=== PATIENT | female | born 1960 | race Caucasian/White ===

== ENCOUNTER 2017-12-07 13:55 | Emergency (ER) | payer BC ==
[2017-12-07 14:02] VITALS: BP 131/66; PULSE 82; TEMP 98.1; BMI 24.5
[2017-12-07] MEDS ORDERED: ALBUTEROL SO4 2.5/IPRATROPIUM 0.5 INH SOL 3 ML VIAL.NEB. NEB ONE ×2 (14:03→15:04)
[2017-12-07] MEDS ORDERED: predniSONE 20 MG TABLET (UD) ONE (14:50)
[2017-12-07] MEDS ORDERED: predniSONE 20 MG TABLET (UD) PO ONE (14:51)
--- NOTE | 2017-12-07 15:02 | PDOC ---
History of Present Illness - General Chief Complaint: Shortness of Breath Stated Complaint: ASTHMA Time Seen by Provider: 12/07/17 14:32 History Source: Patient Exam Limitations: No Limitations - History of Present Illness Initial Comments: 12/07/17 14:54 Patient came for continued cough, shortness of breath and asthma exacerbation. States has been suffering with a URI for the past 10 days and using over-the- counter medications and Proventil pumps however the past few days symptoms have worsened and her use for Proventil has increased. Decided come for evaluation. 12/07/17 16:02 Timing/Duration: reports: getting worse Severity: reports: moderate Possible Cause: Yes: chronic episodes Associated Symptoms: reports: chest pain/soreness, cough, nasal congestion, nasal drainage, wheezing Past History - Travel Traveled outside of the country in the last 30 days: No Close contact w/someone who was outside of country & ill: No - Past Medical History Allergies/Adverse Reactions: Allergies Allergy/AdvReac Type Severity Reaction Status Date / Time No Known Allergies Allergy Verified 12/07/17 13:57 Home Medications: Ambulatory Orders Albuterol Sulfate Inhaler - [Ventolin HFA Inhaler -] 1 - 2 inh PO Q4H #1 inhaler 12/07/17 predniSONE [Deltasone -] 20 mg PO BID #8 tablet 12/07/17 Asthma: Yes Cardiac Disorders: Yes ([place], TRIPLE BYPASS) COPD: Yes Diabetes: Yes HTN: Yes Hypercholesterolemia: Yes - Surgical History Appendectomy: Yes - Suicide/Smoking/Psychosocial Hx Smoking History: Never smoked Review of Systems - Review of Systems Able to Perform ROS?: Yes Is the patient limited Cameroonian proficient: Yes Constitutional: Yes: Symptoms Reported, See HPI, Malaise. No: Chills, Fever HEENTM: Yes: Symptoms Reported, Nose Congestion, Throat Pain Respiratory: Yes: See HPI, Cough, Wheezing. No: Symptoms reported Musculoskeletal: No: Symptoms Reported Integumentary: No: Symptoms Reported Neurological: Yes: Symptoms reported, See HPI, Headache All Other Systems: Reviewed and Negative *Physical Exam - Vital Signs Last Vital Signs Temp Pulse Resp BP Pulse Ox 98.1 F 82 19 131/66 98 12/07/17 13:58 12/07/17 13:58 12/07/17 13:58 12/07/17 13:58 12/07/17 13:58 - Physical Exam General Appearance: Yes: Nourished, Appropriately Dressed, Apparent Distress, Mild Distress, Moderate Distress HEENT: positive: SAMEER, TMs Normal (Fam but landmarks easily visualized), Pharynx Normal, Hearing Grossly Normal Neck: positive: Supple, Lymphadenopathy (R), Lymphadenopathy (L). negative: Tender Respiratory/Chest: positive: Chest Tender (pleuritic type chest pain with deep inspiration), Decreased Breath Sounds, Wheezing. negative: Lungs Clear, Normal Breath Sounds Gastrointestinal/Abdominal: positive: Soft Extremity: positive: Normal Inspection Integumentary: positive: Dry, Warm, Pale Neurologic: positive: commander internal affairs II-XII NML intact, Fully Oriented, Alert, Normal Mood/ Affect, Normal Response, Motor Strength 02/11 ED Treatment Course - Medications Given in the ED: ED Medications Discontinued Medications Generic Name Dose Route Start Last Admin Trade Name Freq PRN Reason Stop Dose Admin Albuterol/Ipratropium 1 amp 12/07/17 14:03 12/07/17 14:05 Duoneb - NEB 12/07/17 14:04 1 amp NOW ONE Administration Prednisone 60 mg 12/07/17 14:51 12/07/17 14:52 Deltasone - PO 12/07/17 14:52 60 mg ONCE ONE Administration Progress Note - Progress Note Progress Note: Upper respiratory infection, with asthma exacerbation Medical Decision Making - Medical Decision Making 12/07/17 15:41 Much improved after third DuoNeb and prednisone. States feels well and ready for discharge. 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 deputy general counsel this week *DC/Admit/Observation/Transfer Diagnosis at time of Disposition: Upper respiratory infection, viral - Discharge Dispostion Disposition: HOME Condition at time of disposition: Stable Admit: No - Prescriptions Prescriptions: Albuterol Sulfate Inhaler - [Ventolin HFA Inhaler -] 1 - 2 inh PO Q4H #1 inhaler predniSONE [Deltasone -] 20 mg PO BID #8 tablet - Referrals Referrals: ON STAFF,NOT [Primary Care Provider] - - Patient Instructions Printed Discharge Instructions: DI for Viral Upper Respiratory Infection -- Adult Additional Instructions: Rest, drink lots of fluids: Teas, water, soups, Pedialyte Saltwater gargles Steamy showers/seem to face break up mucus Avoid contact with others until fevers and cough resolved Lots of handwashing and good hygiene Continue [id number] medications for symptomatic relief Tylenol or Motrin for fever and pain Continue albuterol nebulizers every 4-6 hours for the next 2 days then as needed for continued cough Prednisone as directed until completed Followup with private physician in one to 2 days Return to emergency department / pediatric hospital for worsened symptoms, fevers, dehydration - Post Discharge Activity Forms/Work/School Notes: Back to Work
== END 2017-12-07 16:07 | disposition home or self-care (01) ==
LOC: JERFT 13:55
PROC: 3E0F7GC Introduction of Other Therapeutic Substance into Respiratory Tract, Via Natural or Artificial Opening (ICD-10-PCS; principal; 2017-12-07)
DX: J06.9 Acute upper respiratory infection, unspecified (principal); J44.9 Chronic obstructive pulmonary disease, unspecified; E11.9 Type 2 diabetes mellitus without complications; I10 Essential (primary) hypertension; E78.00 Pure hypercholesterolemia, unspecified
CPT/HCPCS: 99281-25

== ENCOUNTER 2018-07-24 08:24 | Emergency (ER) | payer BC ==
[2018-07-24 08:35] VITALS: BMI 26.4
[2018-07-24] MEDS ORDERED: MECLIZINE HCL 25 MG TABLET (FP) PO ONE (09:40)
[2018-07-24] MEDS ORDERED: MECLIZINE HCL 25 MG TABLET (FP) ONE (09:46)
[2018-07-24] MEDS ORDERED: NYSTATIN 100,000 UNIT/GM TOPICAL CREAM 15 GM TUBE TP ONE (10:11)
--- NOTE | 2018-07-24 10:16 | PDOC ---
Attending Attestation - Resident Resident Name: Marilee Latham - ED Attending Attestation I have performed the following: I have examined & evaluated the patient, The case was reviewed & discussed with the resident, I agree w/resident's findings & plan, Exceptions are as noted - HPI HPI: 07/24/18 10:10 58 yo F with mult med problems including PR/ CABG in 40's, DM TIA, ALL, htn, HLD , and anxiety/ insomnia here /co generalized malaise, chills and concern for wound on her stomach. pt has noted some skin breakdown in her old appendectomy scar has a skin fold there. was putting silvercel and bactroban which she has used for leg wounds in the past. does have h/o eczema in addition. also c/o vertigo.,k vertigo worse with head position change. has had in past many times associated with allergies. no focal weakness. no change to speech. did note a foul oder coming from wound - Physicial Exam PE: 07/24/18 10:13 awake alert lungs clear bilaterally heart Rrr no mrg. abd soft nt nd. rlq with scar , 1 in surrounding area in fold of erythema, scaling present. no fluctance. no open wound noted. no palp hernia. otherwise skin warm and dry. nuero : finger to nose normal, alt hand movement normal. neg romberg. maciej hallpike negative, but pt sxs on sitting up . no noted nystagmus. strength reveals mild llext 4+/ 5 weakness when compared to right. right leg thin, old scars from prior fasciotomies 2 + pulses. - Medical Decision Making 07/24/18 10:16 differential: 58 yo F with htn dm hld prior cabg / cad all here with generalized malaise and weakness, vertigo. left leg weakness on exam. differential renal failure, anemia, hyperglycemia, dehydration, positional vertigo from seasonal allertgies. due to asymmetry of exam will obtain ct head. labs, pt declining iv for iv hydration. meclizine for vertigo. normal cerbellar exam, for her wound will treat for dahlia and eczema with steroid cream and nystatin cream. reassess. sees team driver dr. martinez 07/24/18 12:[address] head normal. left leg likley related to her known lower spine disease. pt had recently had imaging. told to follow up with spine. ua negative. ekg unremarkble. cxr negative. dr latham d/w dr. martinez will see pt this week. continue meclizine for vertigo, and topical nystatin and steroid cream for dermatitis near her old appy scar. Heart Score/ECG Review #1 General ECG Interpretation: Sinus Rhythm, Normal Rate (72), Normal Intervals, No acute ischemic changes (TWI III only, left axis. TWI v1 - v3)
[2018-07-24] MEDS ORDERED: TRIAMCINOLONE ACET 0.1% CREAM 15 GM TUBE TP ONE (10:45)
[2018-07-24 11:12] LABS: BASO % 0.7 % (0-2.0); EOS % 2.2 % (0-4.5); HEMATOCRIT 35.1 % (32.4-45.2); HEMOGLOBIN 11.5 GM/dL (10.7-15.3); LYMPH % 22.3 % (8-40); MCHC 32.7 g/dl (32.0-36.0); MEAN CELL VOLUME 88.8 fl (80-96); MEAN PLT VOLUME 8.4 fl (7.5-11.1); MONO % 13.4 % (3.8-10.2); NEUT % 61.4 % (42.8-82.8); PLATELET COUNT 264 K/MM3 (134-434); RBC 3.95 M/mm3 (3.60-5.2); WHITE BLOOD COUNT 6.2 K/mm3 (4.0-10.0)
[2018-07-24 11:14] LABS: URINE APPEARANCE CLEAR; URINE BILIRUBIN NEGATIVE (<2.0 mg/dL); URINE COLOR YELLOW; URINE GLUCOSE (UA) NEGATIVE (NEGATIVE); URINE KETONE TRACE (NEGATIVE); URINE LEUK ESTERASE TRACE (NEGATIVE); URINE NITRITE NEGATIVE (NEGATIVE); URINE PROTEIN NEGATIVE (NEGATIVE); URINE UROBILINOGEN NEGATIVE mg/dL (0.2-1.0)
[2018-07-24 11:24] LABS: EPI CELLS RARE /HPF (FEW); URINE HYALINE CAST 12 /lpf
[2018-07-24 11:31] LABS: ALBUMIN 3.7 g/dl (3.4-5.0); ALK PHOS 33 U/L (45-117); ANION GAP 8 MMOL/L (8-16); BILIRUBIN,TOTAL 0.3 mg/dL (0.2-1); BLOOD UREA NITROGEN 24 mg/dL (7-18); CALCIUM 8.2 mg/dL (8.5-10.1); CHLORIDE 103 mmol/L (98-107); CO2 28 mmol/L (21-32); CREATININE 1.3 mg/dL (0.55-1.3); GLUCOSE,RANDOM 125 mg/dL (74-106); POTASSIUM 5.1 mmol/L (3.5-5.1); SGOT/AST 42 U/L (15-37); SGPT/ALT 31 U/L (13-61); SODIUM 139 mmol/L (136-145); TOT PROT 6.9 g/dl (6.4-8.2)
--- NOTE | 2018-07-24 12:28 | PDOC ---
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 On Tuesday, patient reports she noticed redness in an area of a previous surgical scar as well as foul-smelling moisture. She dressed the wound with silvercel and bactroban. The area is not tender. Patient denies abdominal pain, nausea, vomiting or abnormal bowel movements. She has also been tired for the past week and had an episode of dizziness yesterday which was alleviated with meclizine. She currently endorses dizziness, but denies any focal neurologic deficits. No fever, chills, chest pain, or shortness of breath. Past History - Past Medical History Allergies/Adverse Reactions: Allergies Allergy/AdvReac Type Severity Reaction Status Date / Time No Known Allergies Allergy Verified 07/24/18 08:30 Home Medications: Ambulatory Orders Albuterol Sulfate Inhaler - [Ventolin HFA Inhaler -] 1 - 2 inh PO Q4H #1 inhaler 12/07/17 Nystatin Cream [Mycostatin Cream -] 1 applic TP BID #1 tube 07/24/18 Triamcinolone 0.1% Cream [Aristocort 0.1% Cream -] 1 applic TP BID #1 tube 07/24 Asthma: Yes Cancer: Yes (ALL) Cardiac Disorders: Yes ([place], TRIPLE BYPASS) COPD: Yes Diabetes: Yes HTN: Yes Hypercholesterolemia: Yes - Surgical History Appendectomy: Yes Cardiac Surgery: Yes (cabg) - Suicide/Smoking/Psychosocial Hx Smoking History: Never smoked Have you smoked in the past 12 months: No Information on smoking cessation initiated: No Hx Alcohol Use: No Drug/Substance Use Hx: No Substance Use Type: None Review of Systems - Review of Systems Comments:: Constitutional: no fever, no chills HEENT: no throat pain, no dysphagia Cardiovascular: no chest pain, no palpitations Respiratory: no cough, no shortness of breath Gastrointestinal: no abdominal pain, no nausea, no vomiting Genitourinary: no dysuria, no frequency Musculoskeletal: no myalgia, no arthralgia Skin: +rash, no itching Neurologic: no headache, +dizziness *Physical Exam - Vital Signs Last Vital Signs Temp Pulse Resp BP Pulse Ox 98.6 F 77 18 138/54 L 100 07/24/18 08:31 07/24/18 08:31 07/24/18 08:31 07/24/18 08:31 07/24/18 08:31 - Physical Exam Comments: General: Awake, alert, and fully oriented, in no acute distress Head: no signs of trauma Eyes: EOMI, sclera anicteric ENT: Moist mucus membranes Neck: Normal ROM, supple Lungs: Lungs clear, Normal breath sounds Cardio: Regular rhythm, S1 and S2 present Abdomen: Soft, nontender. No guarding, no rebound, no masses Extremities: Normal range of motion, Distal pulses present SKIN: Warm, Dry, normal turgor; nontender area of erythema present around old appendectomy surgical scar; no fluctuance, discharge, herniation, or induration. Neurologic: Cranial nerves II through XII grossly intact. Normal speech, sensation, gait, coordination. Strength: LUE 5/5, RUE 5/5, LLE 4/5, RLE 5/5 ED Treatment Course - LABORATORY CBC & Chemistry Diagram: 07/24/18 10:58 07/24/18 10:58 - ADDITIONAL ORDERS Additional order review: Laboratory Results 07/24/18 07/24/18 10:58 10:58 Sodium 139 Potassium 5.1 Chloride 103 Carbon Dioxide 28 Anion Gap 8 BUN 24 H Creatinine 1.3 Creat Clearance w eGFR 41.78 Random Glucose 125 H Calcium 8.2 L Total Bilirubin 0.3 AST 42 H ALT 31 Alkaline Phosphatase 33 L Troponin I < 0.02 Total Protein 6.9 Albumin 3.7 Urine Color Yellow Urine Appearance Clear Urine pH 5.0 Ur Specific [place] 1.020 Urine Protein Negative Urine Glucose (UA) Negative Urine Ketones Trace H Urine Blood Negative Urine Nitrite Negative Urine Bilirubin Negative Urine Urobilinogen Negative Ur Leukocyte Esterase Trace Urine WBC (Auto) 2 Urine RBC (Auto) <1 Ur Epithelial Cells Rare Hyaline Casts 12 07/24/18 10:58 RBC 3.95 MCV 88.8 MCHC 32.7 RDW 13.0 MPV 8.4 Neutrophils % 61.4 Lymphocytes % 22.3 Monocytes % 13.4 H Eosinophils % 2.2 Basophils % 0.7 - RADIOLOGY Radiology Studies Ordered: Category Date Time Status HEAD CT WITHOUT CONTRAST [CT] Stat CT Scan 07/24/18 10:08 Completed CHEST PA & LAT [RAD] Stat Radiology 07/24/18 10:10 Completed - Medications Given in the ED: ED Medications Discontinued Medications Generic Name Dose Route Start Last Admin Trade Name Susan PRN Reason Stop Dose Admin Meclizine HCl 25 mg 07/24/18 09:40 07/24/18 09:55 Antivert - PO 07/24/18 09:41 25 mg ONCE ONE Administration Nystatin 1 applic 07/24/18 10:11 07/24/18 11:09 Mycostatin Cream - TP 07/24/18 10:12 1 applic ONCE ONE Administration Medical Decision Making - Medical Decision Making 58yo F with PMH of DM, HTN, TIA, [place] at age 40 s/p triple bypass, vertigo presenting with skin complaint. -Differential includes yeast infection, cellulitis, inflammation, eczema, as well as SDH, TIA, BPPV -Nystatin and triamcinolone to treat for presumptive yeast infection on abdomen -Will perform workup to investigate patient's dizziness and asymmetric strength exam on lower extremities -Labs: no leukocytosis or anemia, UA negative, Tpn negative -EKG: rate 72, t wave inversions in leads III, V1-V3 -CXR: no acute pathology -Head CT: no acute pathology -Patient declining IV at this time, stating that she is a difficult stick -Meclizine 25: relieved patients dizziness -Discussed case with patients PCP, Dr. Sagastume, who agrees with our plan and is able to see patient this week -Referral to spine -Prescriptions for nystatin and triamcinolone sent to pharmacy -Discharged. Patient amenable to plan *DC/Admit/Observation/Transfer Diagnosis at time of Disposition: Yeast infection of the skin - Discharge Dispostion Disposition: HOME Condition at time of disposition: Improved - Prescriptions Prescriptions: Nystatin Cream [Mycostatin Cream -] 1 applic TP BID #1 tube Triamcinolone 0.1% Cream [Aristocort 0.1% Cream -] 1 applic TP BID #1 tube - Referrals Referrals: Abe Sagastume MD [Primary Care Provider] - Eugenio Rashid MD [Staff Physician] - - Patient Instructions Printed Discharge Instructions: DI for Yeast Infection-Skin Additional Instructions: You came into the ED for a skin complaint. Prescriptions for nystatin and triamcinolone cream sent to your pharmacy. Labs were unremarkable. CT imaging of your head did not show acute pathology. We spoke with Dr. Sagastume who can have you follow-up with him this week. Call and make an appointment. We have referred you to a neuro/product support specialist, Dr. Rashid. Call and make an appointment. Immediate medical attention is required if you experience: redness or hardness, pain or tenderness, a red streak, yellow or green discharge oozing from the area , fever or chills, chest pain, shortness of breath, weakness on one side of your body, lightheadedness, or any new or concerning symptoms. If you think you have an emergency, call for medical help right away. - Post Discharge Activity
[2018-07-24 13:05] VITALS: BP 114/49; PULSE 75; TEMP 97.8
[2018-07-25] MEDS ORDERED: TRIAMCINOLONE ACET 0.1% CREAM 15 GM TUBE TP ONE (10:45)
--- NOTE | 2018-07-25 13:03 | EKG ---
Test Reason : Blood Pressure : / mmHG Vent. Rate : 072 BPM Atrial Rate : 072 BPM P-R Int : 166 ms QRS Dur : 126 ms QT Int : 440 ms P-R-T Axes : 021 -34 003 degrees QTc Int : 481 ms NORMAL SINUS RHYTHM LEFT AXIS DEVIATION RIGHT BUNDLE BRANCH BLOCK MINIMAL VOLTAGE CRITERIA FOR LVH, MAY BE NORMAL VARIANT ABNORMAL ECG NO PREVIOUS ECGS AVAILABLE Confirmed by MD YOU, LUCINA ([id number]) on 07/25/2018 1:03:21 PM Referred By: Confirmed By:LUCINA ORTA MD
== END 2018-07-24 13:04 | disposition home or self-care (01) ==
LOC: JER 08:24
DX: B37.2 Candidiasis of skin and nail (principal); I25.10 Atherosclerotic heart disease of native coronary artery without angina pectoris; Z95.1 Presence of aortocoronary bypass graft; I10 Essential (primary) hypertension; I25.2 Old myocardial infarction; Z86.73 Personal history of transient ischemic attack (TIA), and cerebral infarction without residual deficits; E11.9 Type 2 diabetes mellitus without complications; Z85.6 Personal history of leukemia
CPT/HCPCS: 36415; 70450-TC; 71046-TC-FY; 80053; 81003; 81015; 84484; 85025; 87086; 93005; 93010; 99283-25

== ENCOUNTER 2019-03-28 16:22 | Inpatient (IN) | payer BC ==
--- NOTE | 2019-03-28 18:04 | PDOC ---
History of Present Illness - General Chief Complaint: Pain, Acute Stated Complaint: SENT BY DOCTOR Time Seen by Provider: 03/28/19 18:02 History Source: Patient - History of Present Illness Occurred: reports: other Severity: Yes: severe Lower Extremity Pain Location: right: foot Past History - Past Medical History Allergies/Adverse Reactions: Allergies Allergy/AdvReac Type Severity Reaction Status Date / Time prochlorperazine Allergy Severe Verified 03/28/19 18:23 [From Compazine] Home Medications: Ambulatory Orders Albuterol Sulfate Inhaler - [Ventolin Hfa Inhaler -] 2 inh PO PRN 03/21/19 Alprazolam 0.5 mg PO PRN 03/21/19 Aspirin 81 mg PO DAILY 03/21/19 Atorvastatin Calcium 80 mg PO DAILY 03/21/19 Empagliflozin [Jardiance] 10 mg PO DAILY 03/21/19 Fenofibrate Nanocrystallized [Fenofibrate] 145 mg PO DAILY 03/21/19 Hydrocodone/Acetaminophen [Hydrocodon-Acetaminoph 7.5-325] 1 each PO PRN Hydroxyzine HCl 100 mg PO HS 03/21/19 Nebivolol [Bystolic -] 5 mg PO DAILY 03/21/19 Omeprazole 40 mg PO PRN 03/21/19 Quetiapine Fumarate [Seroquel -] 50 mg PO HS 03/21/19 Trazodone HCl 150 mg PO HS 03/21/19 predniSONE [Deltasone -] 4 mg PO DAILY 03/21/19 Anemia: No Asthma: Yes Cancer: Yes (ALL/cervical) Cardiac Disorders: Yes ([place], TRIPLE BYPASS) CVA: No COPD: Yes CHF: No Dementia: No Diabetes: Yes (BORDER[place]) GI Disorders: No Disorders: No HTN: Yes Hypercholesterolemia: Yes Liver Disease: No Seizures: No Thyroid Disease: No - Surgical History Appendectomy: Yes (11yrs- SKIN GRAFT) Cardiac Surgery: Yes (cabg) - Immunization History Immunization Up to Date: No - Suicide/Smoking/Psychosocial Hx Smoking History: Never smoked Have you smoked in the past 12 months: No If you are a former smoker, when did you quit?: 11 YEARS AGO Information on smoking cessation initiated: No Hx Alcohol Use: No Drug/Substance Use Hx: No Substance Use Type: None Hx Substance Use Treatment: No Review of Systems - Review of Systems Constitutional: No: Chills, Fever, Malaise *Physical Exam - Vital Signs Last Vital Signs Temp Pulse Resp BP Pulse Ox 98.3 F 68 16 121/59 L 97 03/28/19 16:32 03/28/19 16:32 03/28/19 16:32 03/28/19 16:32 03/28/19 16:32 - Physical Exam General Appearance: Yes: Appropriately Dressed. No: Apparent Distress HEENT: positive: Normal Voice Neck: positive: Supple Respiratory/Chest: negative: Respiratory Distress Extremity: positive: Other (cam boot w/ dressing intact to RLE) Integumentary: positive: Dry, Warm Neurologic: positive: Fully Oriented, Alert, Normal Mood/Affect Medical Decision Making - Medical Decision Making 03/28/19 18:13 58 -year-old female, history of depression, HTN, HLD, PVD, non-healing R heel ulcer, presents with worsening pain to ulcer site x several days. No fever or chills. S/p CT with runoffs over 2 weeks ago which showed >90% high grade stenosis to R external iliac and common femoral arteries. States she was told to come to ED for admission by Dr Gil of vascular See exam PVD w/ worsening pain to non-healing ulcer, no e/o infxn CT w/ runoffs w/ high grade stenosis to RLE ~2 weeks ago -pain control -labs -vascular c/s -admit 03/28/19 18:30 Case d/w Dr Gil who states plan is to take pt to OR in am for angioplasty. Will admit at this time *DC/Admit/Observation/Transfer Diagnosis at time of Disposition: PVD (peripheral vascular disease), Non-healing wound - Discharge Dispostion Condition at time of disposition: Fair Decision to Admit order: Yes - Referrals Referrals: Abe Sagastume MD [Primary Care Provider] - - Patient Instructions - Post Discharge Activity
[2019-03-28] MEDS ORDERED: morphine CARPU-JECT 4 MG/1 ML DISP.SYRIN IVPUSH ONE (18:05)
[2019-03-28] MEDS ORDERED: morphine SULFATE 4 MG/ML VIAL ONE (18:24)
[2019-03-28 19:01] LABS: EOS % 1.2 % (0-4.5); HEMOGLOBIN 11.5 GM/dL (10.7-15.3); LYMPH % 12.4 % (8-40); MCH 28.7 pg (25.7-33.7); MEAN CELL VOLUME 89.7 fl (80-96); MEAN PLT VOLUME 8.6 fl (7.5-11.1); MONO % 6.5 % (3.8-10.2); NEUT % 78.9 % (42.8-82.8); PLATELET COUNT 316 K/MM3 (134-434); RBC 4.01 M/mm3 (3.60-5.2); RDW 13.6 % (11.6-15.6); WHITE BLOOD COUNT 12.5 K/mm3 (4.0-10.0)
[2019-03-28 19:18] LABS: INR 0.97 (0.83-1.09); PROTHROMBIN TIME (PATIENT) 11.5 SEC (9.7-13.0)
[2019-03-28 19:20] LABS: BILIRUBIN,TOTAL 0.3 mg/dL (0.2-1); BLOOD UREA NITROGEN 22.9 mg/dL (7-18); CALCIUM 9.5 mg/dL (8.5-10.1); CREATININE 1.1 mg/dL (0.55-1.3); POTASSIUM 4.9 mmol/L (3.5-5.1)
--- NOTE | 2019-03-28 19:22 | PN ---
Teaching Attending Note Name of Resident: Morenita Oropeza ATTENDING PHYSICIAN STATEMENT I saw and evaluated the patient. I reviewed the resident's note and discussed the case with the resident. I agree with the resident's findings and plan as documented. SUBJECTIVE: Patient is a 58 year old woman with PMH od NIDDM, Asthma, CAD, triple vessel CABG, Vertigo, Depression, HTN, HLD, PVD, Appendectomy, non-healing R heel ulcer , presents with worsening pain to ulcer site for several days. Denies fever or chills. Had CT scan with runoffs over 2 weeks ago which showed >90% high grade stenosis to right external iliac and common femoral arteries. States she was told to come to ED for admission by Dr Gil of Vascular Surgery. ER staff discussed case with Dr Gil who states plan is to take the patient to the OR in the morning for angioplasty. OBJECTIVE: Alert Vital Signs Period Temp Pulse Resp BP Sys/Teixeira Pulse Ox Last 24 Hr 98.3 F 68 16 121/59 97 HEENT: No Jaundice, eye redness or discharge, PERRLA, EOMI. Normocephalic, atraumatic. External ears are normal and hearing is grossly intact. No nasal discharge. Neck: Supple, nontender. No palpable adenopathy or thyromegaly. No JVD Chest: Good effort. Clear to auscultation and percussion. Heart: Regular. No S3, rub or murmur Abdomen: Not distended, soft, nontender and no HSM. No rebound or guarding. Normal bowel sounds. Ext: Peripheral pulses intact. No leg edema. RLE wound dressed. Skin: Warm and dry. No petechiae, rash or ecchymosis. Neuro: Alert. Oriented x3. CN 2-12 grossly intact. Sensation grossly intact in all four extremities and DTR are symmetric. Psych: Appropriate mood and affect. Good insight. Home Medications Medication Instructions Recorded Albuterol Sulfate Inhaler - 2 inh PO PRN 03/21/19 [Ventolin Hfa Inhaler -] Alprazolam 0.5 mg PO PRN 03/21/19 Aspirin 81 mg PO DAILY 03/21/19 Atorvastatin Calcium 80 mg PO DAILY 03/21/19 Empagliflozin [Jardiance] 10 mg PO DAILY 03/21/19 Fenofibrate Nanocrystallized 145 mg PO DAILY 03/21/19 [Fenofibrate] Hydrocodone/Acetaminophen 1 each PO PRN 03/21/19 [Hydrocodon-Acetaminoph 7.5-325] Hydroxyzine HCl 100 mg PO HS 03/21/19 Nebivolol [Bystolic -] 5 mg PO DAILY 03/21/19 Omeprazole 40 mg PO PRN 03/21/19 Quetiapine Fumarate [Seroquel -] 50 mg PO HS 03/21/19 Trazodone HCl 150 mg PO HS 03/21/19 predniSONE [Deltasone -] 4 mg PO DAILY 03/21/19 Abnormal Lab Results 03/28/19 03/28/19 18:22 18:22 WBC 12.5 H Absolute Neuts (auto) 9.8 H Anion Gap 7 L BUN 22.9 H Random Glucose 115 H Alkaline Phosphatase 42 L ASSESSMENT AND PLAN: 1. Nonhealing Right Heel Ulcer - Patient being kept NPO after midnight for angioplasty procedure tomorrow. Will give gentle IV fluid support and consult Wound care service. EKG and CXR pending. 2. DM For now, we will hold the home diabetes drugs and implement sliding scale insulin regimen. Provide comprehensive diabetes care with patient teaching and counseling about the importance of adherence to prescribed diabetes regimen, euglycemia, eye care and foot care. 3. Hypertension - Restart suitable outpatient antihypertensive drugs when clinically appropriate. Revise regimen to ensure good BP control. Nonpharmacologic measures to control hypertension like weight loss, salt restriction and exercise discussed. 4. DVT prophylaxis - SCD for now. Start Lovenox 40 mg SQ q 24 hours after procedure. 5. Advance directives - Full code
--- NOTE | 2019-03-28 20:41 | HP ---
CHIEF COMPLAINT: Ulcer Pain PCP: Abe Sagastume (district wildlife manager and PCP) HISTORY OF PRESENT ILLNESS: Pt. is a 58 y.o. F w/ PMHx. 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 Gil for angioplasty of RLE. Pt. had a CT runoff over 2 weeks ago which showed 90% high-grade stenosis of R. external iliac and common femoral artery w/ distl R. peroneal artery occlusion w / reconstitution @ ankle. Focal bulky polypoid calcified plaque in mid abdominal aorta resulting in 50% occlusion(probably higher), and thickening of bladder wall. Pt. endorses dizziness that has been chronic for the last couple of months. Pt. states she was cleared by her district wildlife manager Dr. Sagastume recently. Pt. states she had a stress test 4 months ago and did not have any problems. Pt. denies any chest pain, shortness of breath, changes in urinary habits or bowel changes, fever or chills. ER course was notable for: (1) Morphine 4mg, EKG (2) T&S (3) Discussed w/ Dr. Gil Recent Travel: No PAST MEDICAL HISTORY: As above PAST SURGICAL HISTORY: CABG, Appendectomy, Hysterectomy, multiple surgeries and graft surgeries on RLE Social History: SmokinPPD x 34 years, Quit 11 yrs. ago Alcohol: Denies, only on occasion Drugs: Denies Family History: Aunt- of CVA, Great-aunt of Breast CA, mother has Vaginal CA Allergies prochlorperazine [From Compazine] Allergy (Severe, Verified 03/28/19 18:23) MUSCLE STIFFNESS HOME MEDICATIONS: Home Medications Medication Instructions Recorded Albuterol Sulfate Inhaler - 2 inh PO PRN 03/21/19 [Ventolin Hfa Inhaler -] Alprazolam 0.5 mg PO PRN 03/21/19 Aspirin 81 mg PO DAILY 03/21/19 Atorvastatin Calcium 80 mg PO DAILY 03/21/19 Empagliflozin [Jardiance] 10 mg PO DAILY 03/21/19 Fenofibrate Nanocrystallized 145 mg PO DAILY 03/21/19 [Fenofibrate] Hydrocodone/Acetaminophen 1 each PO PRN 03/21/19 [Hydrocodon-Acetaminoph 7.5-325] Hydroxyzine HCl 100 mg PO HS 03/21/19 Nebivolol [Bystolic -] 5 mg PO DAILY 03/21/19 Omeprazole 40 mg PO PRN 03/21/19 Quetiapine Fumarate [Seroquel -] 50 mg PO HS 03/21/19 Trazodone HCl 150 mg PO HS 03/21/19 predniSONE [Deltasone -] 4 mg PO DAILY 03/21/19 REVIEW OF SYSTEMS As above PHYSICAL EXAMINATION Vital Signs - 24 hr 03/28/19 03/28/19 16:32 19:10 Temperature 98.3 F 98.6 F Pulse Rate 68 Pulse Rate [ 69 Left Apical] Respiratory 16 18 Rate Blood Pressure 121/59 L Blood Pressure 137/55 L [Right Arm] O2 Sat by Pulse 97 95 Oximetry (%) GENERAL: Awake, alert, and fully oriented, in no acute distress. HEAD: Normal with no signs of trauma. EYES: Extraocular movements intact, sclera anicteric, conjunctiva clear. EARS, NOSE, THROAT: Ears normal, nares patent, oropharynx clear without exudates. Moist mucous membranes. NECK: Normal range of motion, supple without lymphadenopathy, JVD, or masses. LUNGS: Breath sounds equal, clear to auscultation bilaterally. No wheezes, and no crackles. No accessory muscle use. HEART: Regular rate and rhythm, normal S1 and S2 without murmur, rub or gallop. ABDOMEN: Soft, nontender, not distended, normoactive bowel sounds, no guarding, no rebound, no masses. MUSCULOSKELETAL: Decreased muscle mass in RLE with exposed achilles tendon UPPER EXTREMITIES: 2+ radial pulses, warm, well-perfused. No cyanosis. No clubbing. No peripheral edema. LOWER EXTREMITIES: 1+ R. and 2+ L. dorsal pedal pulse warm, well-perfused. No calf tenderness. No peripheral edema. Pt. has RLE muscle loss form prior surgeries. NEUROLOGICAL: Normal speech. Normal gait. PSYCHIATRIC: Cooperative. Good eye contact. Appropriate mood and affect. SKIN: Warm, dry, normal turgor, no rashes or lesions noted, normal capillary refill. Laboratory Results - last 24 hr 06/03/28/19 03/28/19 18:22 18:22 18:22 WBC 12.5 H RBC 4.01 Hgb 11.5 Hct 36.0 MCV 89.7 MCH 28.7 MCHC 32.0 RDW 13.6 Plt Count 316 MPV 8.6 Absolute Neuts (auto) 9.8 H Neutrophils % 78.9 Lymphocytes % 12.4 Monocytes % 6.5 Eosinophils % 1.2 Basophils % 1.0 Nucleated RBC % 0 PT with INR 11.50 INR 0.97 Sodium 140 Potassium 4.9 Chloride 106 Carbon Dioxide 26 Anion Gap 7 L BUN 22.9 H Creatinine 1.1 Est GFR (CKD-EPI)AfAm 63.20 Est GFR (CKD-EPI)NonAf 54.53 Random Glucose 115 H Calcium 9.5 Total Bilirubin 0.3 AST 25 ALT 25 Alkaline Phosphatase 42 L Total Protein 7.0 Albumin 4.0 ASSESSMENT/PLAN: Pt. is a 58 y.o. F w/ PMHx. of Arthritis (on Prednisone), Depression, HTN, HLD PVD, COPD, non-healing R-heel ulcer, NIDDM, Cervical CA (s/p Cone biopsy), ALL ( @ 6yrs old s/p chemo), drop foot and NV (s/p 3 vessel CABG) was sent to the ED by Dr. Gil for angioplasty of RLE. #Peripheral Vascular Disease CTA run off noted as above Pt. for Angioplasty in AM NPO T&S Morphine for pain management EKG showed prolonged QTc of 508 from her office visit, would caution against using QTc prolonging agents including anti-emetics. #FEN no IVF monitor electrolytes and replete as needed NPO #DVT. Ppx. TEDs No AC Visit type - Emergency Visit Emergency Visit: Yes ED Registration Date: 03/28/19 Care time: The patient presented to the Emergency Department on the above date and was hospitalized for further evaluation of their emergent condition. - New Patient This patient is new to me today: Yes Date on this admission: 03/29/19 - Critical Care Critical Care patient: No
[2019-03-28] MEDS ORDERED: ALPRAZolam 0.25 MG TABLET ONE (21:26)
[2019-03-28] MEDS: ALPRAZolam 0.25 MG TABLET PO PRN (21:41)
[2019-03-28] MEDS: INSULIN SLIDING SCALE (NOVOLOG) 1 VIAL SQ SCH (22:47)
[2019-03-28] MEDS ORDERED: MORPHINE SULFATE 2 MG/ML VIAL ONE (22:48)
[2019-03-28] MEDS: MORPHINE SULFATE 2 MG/ML VIAL IVPUSH PRN (22:55)
--- NOTE | 2019-03-28 23:39 | PN ---
Progress Note (short form) - Note Progress Note: Vascular Surgery Pt with right heel ulcer with exposed tendon for over a year. CTA done last week shows 90% stenosis of right ext iliac artery For angioplasty with stent placement in am James Gil DO
[2019-03-29 00:18] VITALS: BMI 25.4
[2019-03-29] MEDS: MORPHINE SULFATE 2 MG/ML VIAL IVPUSH PRN ×3 (02:22→11:01)
[2019-03-29] MEDS: INSULIN SLIDING SCALE (NOVOLOG) 1 VIAL SQ SCH ×2 (06:13→11:36)
[2019-03-29] MEDS ORDERED: ALBUTEROL SO4 8 GM HFA INHALER IH ONE (06:30)
[2019-03-29 08:00] LABS: BASO % 0.7 % (0-2.0); EOS % 1.9 % (0-4.5); HEMATOCRIT 38.6 % (32.4-45.2); HEMOGLOBIN 12.4 GM/dL (10.7-15.3); LYMPH % 33.3 % (8-40); MCH 28.6 pg (25.7-33.7); MCHC 32.3 g/dl (32.0-36.0); MEAN CELL VOLUME 88.6 fl (80-96); MEAN PLT VOLUME 8.4 fl (7.5-11.1); MONO % 8.8 % (3.8-10.2); NEUT % 55.3 % (42.8-82.8); PLATELET COUNT 329 K/MM3 (134-434); RBC 4.35 M/mm3 (3.60-5.2); RDW 13.4 % (11.6-15.6); WHITE BLOOD COUNT 10.5 K/mm3 (4.0-10.0)
[2019-03-29 08:05] LABS: INR 0.92 (0.83-1.09); PROTHROMBIN TIME (PATIENT) 10.9 SEC (9.7-13.0)
--- NOTE | 2019-03-29 08:20 | PN ---
Progress Note, Physician History of Present Illness: 03/28/19 18:13 58 -year-old female, history of depression, HTN, HLD, PVD, non-healing R heel ulcer, presents with worsening pain to ulcer site x several days. No fever or chills. S/p CT with runoffs over 2 weeks ago which showed >90% high grade stenosis to R external iliac and common femoral arteries. States she was told to come to ED for admission by Dr Gil of vascular HISTORY OF PRESENT ILLNESS: Pt. is a 58 y.o. F w/ PMHx. 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 Gil for angioplasty of RLE. Pt. had a CT runoff over 2 weeks ago which showed 90% high-grade stenosis of R. external iliac and common femoral artery w/ distl R. peroneal artery occlusion w / reconstitution @ ankle. Focal bulky polypoid calcified plaque in mid abdominal aorta resulting in 50% occlusion(probably higher), and thickening of bladder wall. Pt. endorses dizziness that has been chronic for the last couple of months. Pt. 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 Sagastume recently. Pt. states she had a stress test 4 months ago and did not have any problems. Pt. denies any chest pain, shortness of breath, changes in urinary habits or bowel changes, fever or chills. - Current Medication List Current Medications: Active Medications Alprazolam (Xanax -) 0.25 mg PO DAILY PRN PRN Reason: ANXIETY Last Admin: 03/28/19 21:41 Dose: 0.25 mg Insulin Aspart (Novolog Vial Sliding Scale -) 0 vial SQ ACHS [facility]; Protocol Last Admin: 03/29/19 06:13 Dose: Not Given Morphine Sulfate (Morphine Sulfate) 2 mg IVPUSH Q4H PRN PRN Reason: PAIN LEVEL 7 - 10 Last Admin: 03/29/19 06:18 Dose: 2 mg - Objective Vital Signs: Vital Signs Temperature 98.8 F 03/29/19 04:00 Pulse Rate 70 03/29/19 04:00 Respiratory Rate 20 06/20/19 04:00 Blood Pressure 147/66 03/29/19 04:00 O2 Sat by Pulse Oximetry (%) 94 L 03/28/19 23:00 Constitutional: Yes: Well Nourished, No Distress, Calm Eyes: Yes: WNL, Conjunctiva Clear, EOM Intact HENT: Yes: WNL, Atraumatic, Normocephalic Neck: Yes: WNL, Trachea Midline Cardiovascular: Yes: WNL, Regular Rate and Rhythm Respiratory: Yes: WNL, Regular, CTA Bilaterally Gastrointestinal: Yes: WNL, Normal Bowel Sounds, Soft ...Rectal Exam: Yes: Deferred Genitourinary: Yes: WNL Breast(s): Yes: WNL Musculoskeletal: Yes: WNL Extremities: Yes: Shortened, Other (right lower extremity with muscle wasting, dressing CDI to foot) Edema: No Peripheral Pulses WNL: No Peripheral Pulses: Right Dorsalis Pedis: 0 (not able to assess), Left Femoral: 4 +, Right Femoral: 4+ Integumentary: Yes: Other (right LE) Neurological: Yes: WNL, Alert, Oriented Psychiatric: Yes: Other (very anxious) Labs: INR, PTT INR 0.92 (0.83-1.09) 03/29/19 06:30 - ....Imaging Cat Scan: Report Reviewed (Pt with right heel ulcer with exposed tendon for over a year. CTA done last week shows 90% stenosis of right ext iliac artery For angioplasty with stent placement in am) Problem List - Problems (1) Non-healing wound Code(s): HUW8458 - (2) PVD (peripheral vascular disease) Assessment/Plan: patient for angioplasty with Dr Dallas today management of post-operative pain after proceure Code(s): I73.9 - PERIPHERAL VASCULAR DISEASE, UNSPECIFIED (3) Prophylactic measure Assessment/Plan: FEN NPO until after proecdure IVF montior electrolytes DVT Prohh no chemical anticoagulation Dispo Maintain as in patient until after procedure full code discharge planning Code(s): Z29.9 - ENCOUNTER FOR PROPHYLACTIC MEASURES, UNSPECIFIED Visit type - Emergency Visit Emergency Visit: No - New Patient This patient is new to me today: Yes Date on this admission: 03/29/19 - Critical Care Critical Care patient: No
[2019-03-29 08:24] LABS: BLOOD UREA NITROGEN 20.9 mg/dL (7-18); CALCIUM 9.5 mg/dL (8.5-10.1); MAGNESIUM 1.9 mg/dL (1.8-2.4); PHOSPHOROUS 3.7 mg/dL (2.5-4.9); POTASSIUM 4.3 mmol/L (3.5-5.1)
[2019-03-29] MEDS: ALPRAZolam 0.25 MG TABLET PO PRN (08:33)
[2019-03-29] MEDS ORDERED: ALPRAZolam 0.25 MG TABLET PO ONE (08:45)
[2019-03-29] MEDS ORDERED: ALPRAZolam 0.25 MG TABLET PO PRN ×2 (08:50→16:13)
[2019-03-29] MEDS ORDERED: DEXTROSE 5%-NORMAL SALINE 1,000 ML IV SCH ×2 (11:45→16:13)
--- NOTE | 2019-03-29 12:30 | EKG ---
Test Reason : Blood Pressure : / mmHG Vent. Rate : 070 BPM Atrial Rate : 070 BPM P-R Int : 164 ms QRS Dur : 136 ms QT Int : 434 ms P-R-T Axes : 026 -35 018 degrees QTc Int : 468 ms SINUS RHYTHM WITH PREMATURE ATRIAL COMPLEXES WITH ABERRANT CONDUCTION LEFT AXIS DEVIATION RIGHT BUNDLE BRANCH BLOCK MINIMAL VOLTAGE CRITERIA FOR LVH, MAY BE NORMAL VARIANT ABNORMAL ECG WHEN COMPARED WITH ECG OF 24-JUL-2018 11:08, ABERRANT CONDUCTION IS NOW PRESENT Confirmed by IVA RANDLE MD ([id number]) on 03/29/2019 12:30:15 PM Referred By: Confirmed By:IVA RANDLE MD
[2019-03-29] MEDS ORDERED: ONDANSETRON 4 MG/2 ML VIAL IVPUSH PRN ×2 (13:16→16:13)
[2019-03-29] MEDS ORDERED: MIDAZOLAM HCL 2 MG/2 ML SINGLE DOSE VIAL ONE ×2 (13:39)
[2019-03-29] MEDS ORDERED: PROPOFOL 20 ML ONE ×3 (13:51→14:33)
[2019-03-29] MEDS ORDERED: ceFAZolin SODIUM 1 GM VIAL ONE (13:56)
[2019-03-29] MEDS ORDERED: ceFAZolin SODIUM 1 GM VIAL IVPB ONE (13:59)
[2019-03-29] MEDS ORDERED: LIDOCAINE HCL 1%, 10 MG/ML (20ML VIAL) INF ONE (14:17)
[2019-03-29] MEDS ORDERED: HEPARIN NA (PORCINE) 5,000 UNITS/ML 1ML VIAL IVPUSH ONE (14:17)
[2019-03-29] MEDS ORDERED: LIDOCAINE HCL 1%, 10 MG/ML (20ML VIAL) ONE (14:39)
[2019-03-29] MEDS ORDERED: HEPARIN NA (PORCINE) 5,000 UNITS/ML 1ML VIAL ONE (14:58)
[2019-03-29] MEDS ORDERED: CLOPIDOGREL BISULFATE 75 MG TABLET (FP) ONE (15:41)
--- NOTE | 2019-03-29 15:58 | OP ---
Operative Note - Note: Operative Date: 03/29/19 Pre-Operative Diagnosis: Right iliac artery stenosis Operation: Aortogram, Right iliac artery angiogram, angioplasty, with covered stent placement Findings: right iliac artery stenosis 90% Post-Operative Diagnosis: Same as Pre-op Surgeon: James Gil Anesthesia: Fractional Estimated Blood Loss (mls): 50 Operative Report Dictated: Yes
[2019-03-29] MEDS ORDERED: CLOPIDOGREL BISULFATE 75 MG TABLET (FP) PO SCH (16:00)
--- NOTE | 2019-03-29 16:02 | PN ---
Progress Note (short form) - Note Progress Note: Vascular Surgery S/P right iliac artery angiogram, angioplasty , with covered stent placement. Plavix started and sent to pharmacy. Please have pt follow up in one week. Pt has a palpable PT pulses, and femoral pulse. James Gil DO
[2019-03-29] MEDS ORDERED: MORPHINE SULFATE 2 MG/ML VIAL IVPUSH PRN (16:13)
[2019-03-29] MEDS ORDERED: INSULIN SLIDING SCALE (NOVOLOG) 1 VIAL SQ SCH (16:30)
--- NOTE | 2019-03-29 17:55 | DS ---
Physical Exam: SUBJECTIVE: Patient seen and examined OBJECTIVE: Vital Signs Period Temp Pulse Resp BP Sys/Teixeira Pulse Ox Last 24 Hr 98.1 F-98.8 F 63-81 15-20 104-164/55-88 94-99 LABS Laboratory Results - last 24 hr 03/28/19 03/28/19 03/28/19 18:22 18:22 18:22 WBC 12.5 H RBC 4.01 Hgb 11.5 Hct 36.0 MCV 89.7 MCH 28.7 MCHC 32.0 RDW 13.6 Plt Count 316 MPV 8.6 Absolute Neuts (auto) 9.8 H Neutrophils % 78.9 Lymphocytes % 12.4 Monocytes % 6.5 Eosinophils % 1.2 Basophils % 1.0 Nucleated RBC % 0 PT with INR 11.50 INR 0.97 Sodium 140 Potassium 4.9 Chloride 106 Carbon Dioxide 26 Anion Gap 7 L BUN 22.9 H Creatinine 1.1 Est GFR (CKD-EPI)AfAm 63.20 Est GFR (CKD-EPI)NonAf 54.53 POC Glucometer Random Glucose 115 H Calcium 9.5 Phosphorus Magnesium Total Bilirubin 0.3 AST 25 ALT 25 Alkaline Phosphatase 42 L Total Protein 7.0 Albumin 4.0 Blood Type Antibody Screen 03/28/19 03/28/19 03/29/19 18:22 22:43 05:46 WBC RBC Hgb Hct MCV MCH MCHC RDW Plt Count MPV Absolute Neuts (auto) Neutrophils % Lymphocytes % Monocytes % Eosinophils % Basophils % Nucleated RBC % PT with INR INR Sodium Potassium Chloride Carbon Dioxide Anion Gap BUN Creatinine Est GFR (CKD-EPI)AfAm Est GFR (CKD-EPI)NonAf POC Glucometer 119 83 Random Glucose Calcium Phosphorus Magnesium Total Bilirubin AST ALT Alkaline Phosphatase Total Protein Albumin Blood Type A POSITIVE Antibody Screen Negative 03/29/19 03/29/19 03/29/19 06:30 06:30 06:30 WBC 10.5 H RBC 4.35 Hgb 12.4 Hct 38.6 MCV 88.6 MCH 28.6 MCHC 32.3 RDW 13.4 Plt Count 329 MPV 8.4 Absolute Neuts (auto) 5.8 Neutrophils % 55.3 D Lymphocytes % 33.3 D Monocytes % 8.8 Eosinophils % 1.9 Basophils % 0.7 Nucleated RBC % 0 PT with INR 10.90 INR 0.92 Sodium Potassium Chloride Carbon Dioxide Anion Gap BUN Creatinine Est GFR (CKD-EPI)AfAm Est GFR (CKD-EPI)NonAf POC Glucometer Random Glucose Calcium Phosphorus Magnesium Total Bilirubin AST ALT Alkaline Phosphatase Total Protein Albumin Blood Type A POSITIVE Antibody Screen 03/29/19 03/29/19 03/29/19 06:30 11:30 15:36 WBC RBC Hgb Hct MCV MCH MCHC RDW Plt Count MPV Absolute Neuts (auto) Neutrophils % Lymphocytes % Monocytes % Eosinophils % Basophils % Nucleated RBC % PT with INR INR Sodium 141 Potassium 4.3 Chloride 106 Carbon Dioxide 27 Anion Gap 8 BUN 20.9 H Creatinine 1.0 Est GFR (CKD-EPI)AfAm 70.91 Est GFR (CKD-EPI)NonAf 61.19 POC Glucometer 78 81 Random Glucose 80 Calcium 9.5 Phosphorus 3.7 Magnesium 1.9 Total Bilirubin AST ALT Alkaline Phosphatase Total Protein Albumin Blood Type Antibody Screen HOSPITAL COURSE: Date of Admission:03/28/19 History of Present Illness: 03/28/19 18:13 58 -year-old female, history of depression, HTN, HLD, PVD, non-healing R heel ulcer, presents with worsening pain to ulcer site x several days. No fever or chills. S/p CT with runoffs over 2 weeks ago which showed >90% high grade stenosis to R external iliac and common femoral arteries. States she was told to come to ED for admission by Dr Gil of vascular HISTORY OF PRESENT ILLNESS: Pt. is a 58 y.o. F w/ PMHx. 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 Gil for angioplasty of RLE. Pt. had a CT runoff over 2 weeks ago which showed 90% high-grade stenosis of R. external iliac and common femoral artery w/ distl R. peroneal artery occlusion w / reconstitution @ ankle. Focal bulky polypoid calcified plaque in mid abdominal aorta resulting in 50% occlusion(probably higher), and thickening of bladder wall. Pt. endorses dizziness that has been chronic for the last couple of months. Pt. states she was cleared by her surface water technician Dr. Sagastume recently. Pt. states she had a stress test 4 months ago and did not have any problems. Pt. denies any chest pain, shortness of breath, changes in urinary habits or bowel changes, fever or chills. - Current Medication List Current Medications: Active Medications Alprazolam (Xanax -) 0.25 mg PO DAILY PRN PRN Reason: ANXIETY Last Admin: 03/28/19 21:41 Dose: 0.25 mg Insulin Aspart (Novolog Vial Sliding Scale -) 0 vial SQ [facility]; Protocol Last Admin: 03/29/19 06:13 Dose: Not Given Morphine Sulfate (Morphine Sulfate) 2 mg IVPUSH Q4H PRN PRN Reason: PAIN LEVEL 7 - 10 Last Admin: 03/29/19 06:18 Dose: 2 mg - Objective Vital Signs: Vital Signs Temperature 98.8 F 03/29/19 04:00 Pulse Rate 70 03/29/19 04:00 Respiratory Rate 03/29/19 04:00 Blood Pressure 147/66 03/29/19 04:00 O2 Sat by Pulse Oximetry (%) 94 L 03/28/19 23:00 Constitutional: Yes: Well Nourished, No Distress, Calm Eyes: Yes: WNL, Conjunctiva Clear, EOM Intact HENT: Yes: WNL, Atraumatic, Normocephalic Neck: Yes: WNL, Trachea Midline Cardiovascular: Yes: WNL, Regular Rate and Rhythm Respiratory: Yes: WNL, Regular, CTA Bilaterally Gastrointestinal: Yes: WNL, Normal Bowel Sounds, Soft ...Rectal Exam: Yes: Deferred Genitourinary: Yes: WNL Breast(s): Yes: WNL Musculoskeletal: Yes: WNL Extremities: Yes: Shortened, Other (right lower extremity with muscle wasting, dressing CDI to foot) Edema: No Peripheral Pulses WNL: No Peripheral Pulses: Right Dorsalis Pedis: 0 (not able to assess), Left Femoral: 4 +, Right Femoral: 4+ Integumentary: Yes: Other (right LE) Neurological: Yes: WNL, Alert, Oriented Psychiatric: Yes: Other (very anxious) Labs: INR, PTT INR 0.92 (0.83-1.09) 03/29/19 06:30 - ....Imaging Cat Scan: Report Reviewed (Pt with right heel ulcer with exposed tendon for over a year. CTA done last week shows 90% stenosis of right ext iliac artery For angioplasty with stent placement in am) Problem List - Problems (1) Non-healing wound Code(s): [id number] - (2) PVD (peripheral vascular disease) Assessment/Plan: patient for s/p angioplasty with stent placement with Dr Gil today management of post-operative pain after proceure Code(s): I73.9 - PERIPHERAL VASCULAR DISEASE, UNSPECIFIED (3) Prophylactic measure Assessment/Plan: Plavix 50mg qd as per Dr Gil Minutes to complete discharge: 30 Discharge Summary Reason For Visit: NON HEALING WOUND Current Active Problems Non-healing wound (Acute) PVD (peripheral vascular disease) (Acute) Prophylactic measure (Acute) - Instructions Diet, Activity, Other Instructions: resume home diet. S/P right iliac artery angiogram, angioplasty , with covered stent placement. Pt has a palpable PT pulses, and femoral pulse. Plavix started and sent to pharmacy. Please have pt follow up in one week with Dr Gil Referrals: James Gil DO [Staff Physician] - - Home Medications Comprehensive Discharge Medication List: Ambulatory Orders Albuterol Sulfate Inhaler - [Ventolin HFA Inhaler -] 2 inh PO PRN 03/21/19 Alprazolam 0.5 mg PO PRN 03/21/19 Aspirin 81 mg PO DAILY 03/21/19 Atorvastatin Calcium 80 mg PO DAILY 03/21/19 Empagliflozin [Jardiance] 10 mg PO DAILY 03/21/19 Fenofibrate Nanocrystallized [Fenofibrate] 145 mg PO DAILY 03/21/19 Hydrocodone/Acetaminophen [Hydrocodone-Acetamin 7.5-325] 1 each PO PRN 03/21/19 Hydroxyzine HCl 100 mg PO HS 03/21/19 Nebivolol [Bystolic -] 5 mg PO DAILY 03/21/19 Omeprazole 40 mg PO PRN 03/21/19 Quetiapine Fumarate [Seroquel -] 50 mg PO HS 03/21/19 Trazodone HCl 150 mg PO HS 03/21/19 predniSONE [Deltasone -] 4 mg PO DAILY 03/21/19 Clopidogrel Bisulfate [Plavix -] 75 mg PO DAILY tablet 03/29/19 Clopidogrel Bisulfate [Plavix -] 75 mg PO DAILY #30 tablet 03/29/19 Insulin Sliding Scale [Novolog Vial Sliding Scale -] 0 vial SQ ACHS units 03/29 Insulin Sliding Scale [Novolog Vial Sliding Scale -] 1 vial SQ ACHS units 03/29 Problem List - Problems (1) Non-healing wound Code(s): [id number] - (2) PVD (peripheral vascular disease) Code(s): I73.9 - PERIPHERAL VASCULAR DISEASE, UNSPECIFIED (3) Prophylactic measure Code(s): Z29.9 - ENCOUNTER FOR PROPHYLACTIC MEASURES, UNSPECIFIED This patient is new to me today: No Emergency Visit: No Critical Care patient: No - Discharge Referral Referred to [facility] Med P.C.: No
[2019-03-30 17:29] VITALS: BP 140/80; PULSE 68; TEMP 97.8
--- NOTE | 2019-04-04 19:21 | OP ---
DATE OF OPERATION: 03/29/2019 PREOPERATIVE DIAGNOSIS: Right lower extremity heel ulcer. POSTOPERATIVE DIAGNOSIS: Right lower extremity heel ulcer. PROCEDURE: Aortogram, right iliac artery angiogram, angioplasty, covered-stent placement. SURGEON: James Mckenna DO ANESTHESIA: Fractional. BLOOD LOSS: 50 mL. The patient is a 58-year-old female who has a 6-month history of a right heel ulcer that has not been healing and is down to tendon. She goes to a wound care doctor up [place] where they have been using skin substitutes with no avail. She then came down to [place] for a vascular evaluation. Preoperatively, patient had a CTA showing that she has 95% stenosis of her right external iliac artery. Patient had medical and cardiology clearance, and we then proceeded for an aortogram, right lower extremity angiogram. Patient was consented for the procedure, understanding all risks, benefits, and alternatives, then taken to the operating room. DESCRIPTION OF PROCEDURE: Once in the operating room, was laid on the operative table in supine manner, and the areas of the right and left groins were prepped and draped in a sterile surgical manner. We then went ahead and injected 10 mL of lidocaine 1% over the left common femoral artery. We then took our micropuncture needle, punctured the left common femoral artery. Micropuncture wire was inserted. Micropuncture sheath was inserted, and we went ahead and placed a traditional 5-[place] sheath. We then placed a 0.035 floppy guidewire up into the aorta, followed by Omni Flush catheter. We then shot an aortogram via hand injection, showing that the aorta was without any disease, but the right external iliac artery had 95% to 100% occlusion for at least 8 cm. At this point, we placed a 0.035 floppy guidewire up and over and got the wire all the way down to the common femoral artery and into the SFA. We then went ahead and placed a Quick-Cross catheter, and we were able to exchange the wire for a 0.035 stiff guidewire. We then placed a 7 x 45 crossover sheath and placed it in the right common iliac artery. Next, 5000 units of IV heparin were administered to the patient. We then went ahead and shot an angiogram of the right iliac artery, showing that there was an 8- to 10-cm stenosis/occlusion of the right external iliac artery. We then went ahead and used two 7 x 58 covered stents made by [employer] which are known as LIFESTREAM, and we were able to deploy them in the right external iliac artery. We then ballooned them in place using a 7 x 8 [place] balloon. Once that was done, we shot a completion angiogram showing that the right external iliac was completely patent. There was good brisk flow. There was a good pulse in the right common femoral artery which was not present before. We then shot an angiogram of the right lower extremity, showing that the iliac artery was open; right common femoral, profunda, and the SFA were patent; popliteal artery was patent; and patient's main runoff was the PT going down into the foot, feeding the ulcer. At this point, no more intervention was needed. We brought our sheath up and over. [employer] device was successfully deployed in the left common femoral artery. Pressure was held for 5 minutes. Afterwards, there was no more bleeding. Area was wet and dried, and Dermabond was placed. Patient tolerated the procedure with no complication. Patient transferred to PACU in stable condition. JAMES MCKENNA DO NP/[id number]
== END 2019-03-29 20:10 | disposition home or self-care (01) | DRG 253 ==
LOC: JER 16:22 → JERBED 18:43 → J6S 23:10
PROVIDERS: ADMIT Internal Medicine; ATTEND Nurse Practitioner Acute Care
PROC: B40FYZZ Plain Radiography of Right Lower Extremity Arteries using Other Contrast (ICD-10-PCS; 2019-03-29)
PROC: B40DYZZ Plain Radiography of Aorta and Bilateral Lower Extremity Arteries using Other Contrast (ICD-10-PCS; 2019-03-29)
PROC: 3E033GC Introduction of Other Therapeutic Substance into Peripheral Vein, Percutaneous Approach (ICD-10-PCS; 2019-03-29)
PROC: 047H35Z Dilation of Right External Iliac Artery with Two Drug-eluting Intraluminal Devices, Percutaneous Approach (ICD-10-PCS; principal; 2019-03-29 12:45)
DX: E11.51 Type 2 diabetes mellitus with diabetic peripheral angiopathy without gangrene (principal); L97.818 Non-pressure chronic ulcer of other part of right lower leg with other specified severity; I25.10 Atherosclerotic heart disease of native coronary artery without angina pectoris; E11.622 Type 2 diabetes mellitus with other skin ulcer; F32.9 Major depressive disorder, single episode, unspecified; I10 Essential (primary) hypertension; E78.5 Hyperlipidemia, unspecified; J45.909 Unspecified asthma, uncomplicated; J44.9 Chronic obstructive pulmonary disease, unspecified; M21.379 Foot drop, unspecified foot; I25.2 Old myocardial infarction; Z85.41 Personal history of malignant neoplasm of cervix uteri; Z95.1 Presence of aortocoronary bypass graft
CPT/HCPCS: 36415; 71046-TC-FY; 76000-TC-FY; 80048; 80053; 82962; 83735; 84100; 85025; 85610; 86850; 86900; 86901; 93005; 93010; 94760; 99284-25; J1644

== ENCOUNTER 2019-05-03 07:21 | Day surgery (SDC) | payer BC ==
[2019-05-02 14:50] VITALS: BMI 24.5
[2019-05-03] MEDS ORDERED: MIDAZOLAM HCL 2 MG/2 ML SINGLE DOSE VIAL ONE (09:18)
[2019-05-03] MEDS ORDERED: ceFAZolin SODIUM 1 GM VIAL ONE (09:18)
[2019-05-03] MEDS ORDERED: PROPOFOL 20 ML ONE ×2 (09:18)
[2019-05-03] MEDS ORDERED: LIDOCAINE HCL/PF 2% SDV 5ML VIAL ONE (09:18)
[2019-05-03] MEDS ORDERED: ceFAZolin SODIUM 1 GM VIAL IVPB ONE (09:32)
--- NOTE | 2019-05-03 09:34 | HP ---
Admitting History and Physical - Admission Chief Complaint: right lower extremity ulcer Limitations to Obtaining History: No Limitations - Past Medical History ...: No - Smoking History Smoking history: Never smoked Have you smoked in the past 12 months: No If you are a former smoker, when did you quit?: 11 YEARS AGO - Alcohol/Substance Use Hx Alcohol Use: Yes Home Medications - Allergies Allergies/Adverse Reactions: Allergies Allergy/AdvReac Type Severity Reaction Status Date / Time prochlorperazine Allergy Severe Verified 05/03/19 08:04 [From Compazine] chlorpromazine Allergy "neck Verified 05/03/19 08:04 [From Thorazine] spasms" - Home Medications Home Medications: Ambulatory Orders Albuterol Sulfate Inhaler - [Ventolin HFA Inhaler -] 2 inh PO PRN 03/21/19 Alprazolam 0.5 mg PO PRN 03/21/19 Aspirin 81 mg PO DAILY 03/21/19 Atorvastatin Calcium 80 mg PO DAILY 03/21/19 Empagliflozin [Jardiance] 10 mg PO DAILY 03/21/19 Fenofibrate Nanocrystallized [Fenofibrate] 145 mg PO DAILY 03/21/19 Hydrocodone/Acetaminophen [Hydrocodone-Acetamin 7.5-325] 1 each PO PRN 03/21/19 Hydroxyzine HCl 100 mg PO HS 03/21/19 Nebivolol [Bystolic -] 5 mg PO DAILY 03/21/19 Omeprazole 40 mg PO PRN 03/21/19 Quetiapine Fumarate [Seroquel -] 50 mg PO HS 03/21/19 Trazodone HCl 150 mg PO HS 03/21/19 predniSONE [Deltasone -] 4 mg PO DAILY 03/21/19 Clopidogrel Bisulfate [Plavix -] 75 mg PO DAILY tablet 03/29/19 Collagenase Clostridium Hist. [Santyl] 1 applic TP DAILY #90 oint...g. 04/06/19 Venlafaxine HCl ER [Effexor Xr -] 150 mg PO DAILY 05/02/19 Review of Systems - Review of Systems Constitutional: reports: No Symptoms Eyes: reports: No Symptoms HENT: reports: No Symptoms Neck: reports: No Symptoms Cardiovascular: reports: No Symptoms Respiratory: reports: No Symptoms Gastrointestinal: reports: No Symptoms Genitourinary: reports: No Symptoms Musculoskeletal: reports: No Symptoms Integumentary: reports: No Symptoms Neurological: reports: No Symptoms Endocrine: reports: No Symptoms Hematology/Lymphatic: reports: No Symptoms Psychiatric: reports: No Symptoms Physical Examination Vital Signs: Vital Signs Temperature 98.5 F 05/03/19 08:03 Pulse Rate 71 05/03/19 08:03 Respiratory Rate 20 05/03/19 08:03 Blood Pressure 130/63 05/03/19 08:03 O2 Sat by Pulse Oximetry (%) 96 05/03/19 08:02 Constitutional: Yes: Well Nourished, No Distress, Calm Eyes: Yes: WNL, Conjunctiva Clear, EOM Intact HENT: Yes: WNL, Atraumatic, Normocephalic Neck: Yes: WNL, Supple, Trachea Midline Cardiovascular: Yes: WNL, Regular Rate and Rhythm Respiratory: Yes: WNL, Regular, CTA Bilaterally Gastrointestinal: Yes: WNL, Normal Bowel Sounds Musculoskeletal: Yes: WNL Extremities: Yes: WNL Edema: No Peripheral Pulses WNL: Yes Integumentary: Yes: WNL Neurological: Yes: WNL, Alert, Oriented ...Motor Strength: WNL Psychiatric: Yes: WNL Problem List - Problems (1) Non-pressure chronic ulcer of right ankle with fat layer exposed Assessment/Plan: For OR debridement and application of aplifraf Code(s): L97.312 - NON-PRS CHRONIC ULCER OF RIGHT ANKLE W FAT LAYER EXPOSED
[2019-05-03] MEDS ORDERED: LIDOCAINE HCL 1%, 10 MG/ML (20ML VIAL) ONE (09:45)
[2019-05-03] MEDS ORDERED: LIDOCAINE HCL 1%, 10 MG/ML (20ML VIAL) NR ONE (09:59)
--- NOTE | 2019-05-03 10:04 | OP ---
Operative Note - Note: Operative Date: 05/03/19 Pre-Operative Diagnosis: Right heel ulcer non-healing Operation: Excisional debridement right leg ulcer skin, subcutaneous tissue, application of apligraf skn substitute Post-Operative Diagnosis: Same as Pre-op Surgeon: James Gil Anesthesia: Fractional Estimated Blood Loss (mls): 20 Operative Report Dictated: Yes
[2019-05-03] MEDS ORDERED: oxyCODONE HCL 5 MG TABLET PO PRN (10:08)
[2019-05-03] MEDS ORDERED: ONDANSETRON 4 MG/2 ML VIAL IVPUSH PRN (10:08)
[2019-05-03] MEDS ORDERED: LACTATED RINGERS SOLUTION 1,000 ML IV SCH (10:15)
--- NOTE | 2019-05-03 11:10 | OP ---
DATE OF OPERATION: 05/03/2019 PREOPERATIVE DIAGNOSIS: Right ankle ulcer. POSTOPERATIVE DIAGNOSIS: Right ankle ulcer. PROCEDURE: Excisional debridement, right ankle ulcer, skin and subcutaneous tissue, with application of Apligraf skin substitute. SURGEON: James Mckenna MD ANESTHESIA: Fractional. BLOOD LOSS: 20 mL. INDICATIONS: The patient is a 58-year-old female who has a chronic right lower extremity ulcer. She had a right external iliac angioplasty and stent placement about 3 weeks ago, and now, we are going to be debriding the ulcer now that she has new-found blood to the area. Patient came into ambulatory surgery. Patient was consented for the procedure understanding all risks, benefits, and alternatives, and then, taken to the operating room. PROCEDURE IN DETAIL: Once in the operating suite, she was placed on the operating table in the supine manner, and the area of the right leg was prepped and draped in the sterile surgical manner. We then injected 15 mL of lidocaine 1% in the area. We then went ahead and took a No. 15 blade and sharply debrided away all the necrotic tissue getting down to the Achilles tendon. Once we were able to excise all the necrotic tissue, then, the necrotic tissue was sent down to Pathology. The wound was then well irrigated. Bovie electrocautery was used to control hemostasis. We then went ahead and opened our Apligraf. Apligraf was fenestrated using a No. 11 blade. We then took our Apligraf and placed it onto our wound. Xeroform was placed, 4x4 was placed, Kerlix was placed, and an Acosta bandage was then placed. Patient tolerated the procedure with no complications. Total blood loss 20 mL. Patient transferred to PACU in stable condition. Patient will come back next week for a dressing change and reapplication of Apligraf No. 2. JAMES CMKENNA DO [id number]
[2019-05-03 15:05] VITALS: BP 138/69; PULSE 75; TEMP 98.7
== END 2019-05-03 12:15 | disposition home or self-care (01) ==
LOC: JASU-SURG 07:21
PROVIDERS: ATTEND Surgery Vascular Surgery
PROC: 0HRKXK3 Replacement of Right Lower Leg Skin with Nonautologous Tissue Substitute, Full Thickness, External Approach (ICD-10-PCS; 2019-05-03)
PROC: 0JBN0ZZ Excision of Right Lower Leg Subcutaneous Tissue and Fascia, Open Approach (ICD-10-PCS; principal; 2019-05-03 09:00)
DX: L97.312 Non-pressure chronic ulcer of right ankle with fat layer exposed (principal)
CPT/HCPCS: 82962; 94760